=== PATIENT | male | born 2005 | race Hispanic/Latino ===

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

== ENCOUNTER 2024-07-18 14:41 | Emergency (ER) | payer SELFPAY ==
--- NOTE | 2024-07-18 16:20 | RAD REPORT ---
EXAM:Ankle Right 3 View CLINICAL HISTORY: Ankle pain FINDINGS: No fracture or dislocation seen. Soft tissue swelling
--- NOTE | 2024-07-18 16:26 | ER ---
Nurse's Notes [facility] Name: Lucien Hoffmann Age: 19 yrs Sex: Male : 2005 Arrival Date: 07/18/2024 Time: 14:41 Bed 12 Private MD: Diagnosis: Sprain of unspecified ligament of left ankle, initial encounter Presentation: 07/18 15:09 Chief complaint: Rolled ankle stepping out of vehicle, c/o right ankle pain 01/18. hb Coronavirus screen: At this time, the client does not indicate any symptoms associated with coronavirus-19. Ebola Screen: No symptoms or risks identified at this time. Initial Sepsis Screen: Does the patient meet any 2 criteria? No. Patient's initial sepsis screen is negative. Does the patient have a suspected source of infection? No. Patient's initial sepsis screen is negative. Risk Assessment: Do you want to hurt yourself or someone else? Patient reports no desire to harm self or others. Onset of symptoms was July 17, 2024. 15:09 Method Of Arrival: Ambulatory hb 15:09 Acuity: HAMMAD 4 hb Historical: - Allergies: 15:09 No Known Allergies; hb - Home Meds: 15:09 None [Active]; hb - PMHx: 15:09 None; hb - PSHx: 15:09 None; hb - Immunization history:: Adult Immunizations up to date. - Infectious Disease History:: Denies. - Social history:: Smoking status: Reported history of juuling and/or vaping. Screenin:33 [facility] ED Fall Risk Assessment (Adult) History of falling in the last 3 months, ap3 including since admission No falls in past 3 months (0 pts) Confusion or Disorientation No (0 pts) Intoxicated or Sedated No (0 pts) Impaired Gait No (0 pts) Mobility Assist Device Used No (0 pt) Altered Elimination No (0 pt) Score/Fall Risk Level 0 - 2 = Low Risk Oriented to surroundings, Maintained a safe environment, Educated pt \T\ family on fall prevention, incl call for assistance when getting out of bed, Assessed \T\ reinforced patient's understanding of fall precautions, Hourly rounding (assess needs \T\ fall precautionary measures) done, Used ambulatory aids as needed (educated on \T\ assisted with). Abuse screen: Denies threats or abuse. Nutritional screening: No deficits noted. Tuberculosis screening: No symptoms or risk factors identified. Assessment: 15:33 General: Appears in no apparent distress. Behavior is calm, cooperative, appropriate ap3 for age. Pain: Complains of pain in right ankle. Neuro: Level of Consciousness is awake, alert, obeys commands, Oriented to person, place, time, situation, Appropriate for age. Cardiovascular: Patient's skin is warm and dry. Respiratory: Airway is patent Respiratory effort is even, unlabored, Respiratory pattern is regular, symmetrical. Musculoskeletal: Reports pain in right ankle. Vital Signs: 15:10 BP 141 / 88; Pulse 86; Resp 16; Temp 97.8; Pulse Ox 100% on R/A; Weight 77.11 kg; hb Height 5 ft. 10 in. ; Pain 9/10; 15:10 Body Mass Index 24.39 (77.11 kg, 177.8 cm) hb 15:10 Pain Scale: Adult hb ED Course: 14:45 Patient arrived in ED. al6 15:01 Charles Arredondo PA is PHCP. cp 15:01 Kevin Hurt MD is Attending Physician. cp 15:09 Triage completed. hb 15:10 Arm band placed on. hb 15:33 Romy Hancock, MONSE is Primary Nurse. ap3 15:55 Ankle Right 3 View XRAY In Process Unspecified. EDMS 16:25 Ray Donnelly MD is Referral Physician. cp 16:48 No provider procedures requiring assistance completed. Patient did not have IV access ss during this emergency room visit. Administered Medications: 16:34 Drug: Ibuprofen PO 800 mg PO once Route: PO; ap3 16:49 Follow up: Response: No adverse reaction ss Outcome: 16:25 Discharge ordered by . cp 16:48 Discharged to home ambulatory, ss 16:48 Condition: good 16:48 Discharge instructions given to patient, Instructed on discharge instructions, follow up and referral plans. medication usage, Demonstrated understanding of instructions, follow-up care, medications, Prescriptions given X 1, 16:49 Patient left the ED. ss Signatures: Dispatcher [employer] EDMS Lyn Gu RN RN Charles Arredondo PA PA cp Tracey Soriano RN RN Romy Hancock RN RN ap3 Janelle Arteaga al6
--- NOTE | 2024-07-18 16:26 | EDPHYS ---
Physician Documentation [facility] Name: Lucien Hoffmann Age: 19 yrs Sex: Male : 2005 Arrival Date: 07/18/2024 Time: 14:41 Bed 12 Private MD: ED Physician Kevin Hurt HPI: 07/18 16:00 This 19 yrs old Male presents to ER via Ambulatory with complaints of Ankle cp Injury. 16:00 The patient presents with an injury, pain, that is acute. The complaints affect the cp right ankle. Onset: The symptoms/episode began/occurred yesterday. 16:00 Context: resulted from a mis-step by the patient, getting out of vehicle, The patient cp can fully bear weight on the affected extremity. Associated signs and symptoms: Pertinent negatives: calf tenderness, numbness. Modifying factors: the symptoms are aggravated by weight bearing, movement. Severity of symptoms: in the emergency department the symptoms are unchanged, despite home interventions. Historical: - Allergies: 15:09 No Known Allergies; hb - Home Meds: 15:09 None [Active]; hb - PMHx: 15:09 None; hb - PSHx: 15:09 None; hb - Immunization history:: Adult Immunizations up to date. - Infectious Disease History:: Denies. - Social history:: Smoking status: Reported history of juuling and/or vaping. ROS: 16:05 MS/extremity: Positive for pain, of the right ankle, Negative for decreased range of cp motion, deformity, paresthesias, 16:05 Constitutional: Negative for body aches, chills, fever, poor PO intake, cp 16:05 Neck: Negative for pain with movement, pain at rest, 16:05 Back: Negative for pain at rest, pain with movement, 16:05 Neuro: Negative for numbness, weakness, 16:05 All other systems are negative, Exam: 16:10 Constitutional: The patient appears in no acute distress, alert, awake, non-toxic, well cp developed, well nourished, 16:10 Head/Face: Normocephalic, atraumatic. cp 16:10 Neck: ROM/movement: is normal, is supple, without pain, no range of motions limitations, 16:10 Chest/axilla: Inspection: normal, 16:10 Cardiovascular: Rate: normal, 16:10 Respiratory: the patient does not display signs of respiratory distress, Respirations: normal, no use of accessory muscles, no retractions, 16:10 Back: pain, is absent, ROM is normal, 16:10 Musculoskeletal/extremity: Extremities: grossly normal except: noted in the right lateral malleolus: pain, swelling, tenderness, There is no evidence of decreased ROM, deformity, ROM: limited passive range of motion due to pain, in the right ankle, Perfusion: the extremity is normally perfused throughout, the right foot Sensation intact. Vital Signs: 15:10 BP 141 / 88; Pulse 86; Resp 16; Temp 97.8; Pulse Ox 100% on R/A; Weight 77.11 kg; hb Height 5 ft. 10 in. ; Pain 9/10; 15:10 Body Mass Index 24.39 (77.11 kg, 177.8 cm) hb 15:10 Pain Scale: Adult hb MDM: 16:00 Differential diagnosis: fracture, sprain, dislocation, Achilles tendon rupture. 16:25 Medical Screening Exam initiated 16:25 Data reviewed: vital signs, nurses notes, radiologic studies, plain films, and as a cp result, I will discharge patient. 16:25 I considered the following discharge prescriptions or medication management in the emergency department Medications were administered in the Emergency Department. See MAR. Independent interpretation of the following test(s) in the Emergency Department X-Ray: My interpretation is images of right ankle negative for fracture. Counseling: I had a detailed discussion with the patient and/or guardian regarding the historical points, exam findings, and any diagnostic results supporting the discharge/admit diagnosis, radiology results, to return to the emergency department if symptoms worsen or persist or if there are any questions or concerns that arise at home. Response to treatment: the patient's symptoms have mildly improved after treatment, and as a result, I will discharge patient. 07/18 15:10 Order name: Ankle Right 3 View XRAY; Complete Time: 16:22 hb Administered Medications: 16:34 Drug: Ibuprofen PO 800 mg PO once Route: PO; ap3 16:49 Follow up: Response: No adverse reaction ss Disposition: 07/19 13:53 Chart complete. cp 16:27 Co-signature as Attending Physician, Kevin Hurt MD I reviewed the patient's care rn provided by the Advanced Practice Provider and agree with the diagnosis and treatment plan. Disposition Summary: 07/18/24 16:25 Discharge Ordered Notes: Location: Home cp Problem: new cp Symptoms: have improved cp Condition: Stable cp Diagnosis - Sprain of unspecified ligament of left ankle, initial encounter cp Followup: cp - With: Ray Donnelly MD - When: 5 - 6 days - Reason: pain and swelling continues Discharge Instructions: - Discharge Summary Sheet cp - Ankle Sprain cp Forms: - Work release form ss - Medication Reconciliation Form cp - Antibiotic Education cp - Prescription Opioid Use cp - Patient Portal Instructions cp - Leadership Thank You Letter cp Prescriptions: - Ibuprofen 800 mg Oral Tablet - take 1 tablet ORAL route every 8 hours As needed take with food; 30 tablet; cp Refills: 0, Product Selection Permitted Signatures: Dispatcher [employer] EDKevin Musa MD MD rn Page, Corey, PA PA cp Baxter, Heather RN RN Romy Banks RN RN ap3 Lyn Gu RN ss
[2024-07-18] MEDS ORDERED: IBUPROFEN 400 MG TAB ONE (16:27)
[2024-07-18 17:35] VITALS: BP 141/88; TEMP 97.8; O2SAT 100
== END 2024-07-18 16:49 | disposition home or self-care (01) ==
LOC: ER 14:41
DX: S93.401A Sprain of unspecified ligament of right ankle, initial encounter (principal)
CPT/HCPCS: 99283

== ENCOUNTER 2024-07-31 12:30 | Emergency (ER) | payer SELFPAY ==
[2024-07-31] MEDS ORDERED: KETOROLAC 30 MG/ML INJ ONE (12:51)
[2024-07-31] MEDS ORDERED: HYDROCODONE/APAP 5/325 MG TAB ONE (12:52)
--- NOTE | 2024-07-31 14:40 | RAD REPORT ---
EXAMINATION: XR Foot Left 3 View CLINICAL INDICATION: Male, 19 years old. [facility] MAIN Pain;Swelling Bed Name: TECHNIQUE: 3 view radiographs of the left foot were obtained. COMPARISON: No prior exam. FINDINGS: Mildly displaced fracture at the base of the calcaneus with fracture gap along the posterol ateral cortex measuring up to 9 mm. No evidence of arthropathy or other focal bone lesion. Soft tissue swelling about the ankle. No significant degenerative changes. IMPRESSION: Mildly displaced fracture at the base of the calcaneus.
--- NOTE | 2024-07-31 14:40 | RAD REPORT ---
EXAMINATION: XR Ankle Left 3 View CLINICAL INDICATION: Male, 19 years old. [facility] MA[facility] Pain;Swelling Bed Name: 12 TECHNIQUE: 3 view radiographs of the left ankle were obtained. COMPARISON: No prior exam. FINDINGS: Mildly displaced fracture at the base of the calcaneus. Surrounding soft tissue swelling. IMPRESSION: Mildly displaced fracture at the base of the calcaneus.
--- NOTE | 2024-07-31 15:10 | ER ---
Nurse's Notes [facility] Name: Lucien Hoffmann Age: 19 yrs Sex: Male : 2005 Arrival Date: 07/31/2024 Time: 12:30 Bed 12 Private MD: Diagnosis: Fracture of calcaneus Presentation: 07/31 12:38 Chief complaint: Dropped couch on left foot this morning, c/o pain 02/17. Coronavirus hb screen: At this time, the client does not indicate any symptoms associated with coronavirus-19. Ebola Screen: No symptoms or risks identified at this time. Initial Sepsis Screen: Does the patient meet any 2 criteria? No. Patient's initial sepsis screen is negative. Does the patient have a suspected source of infection? No. Patient's initial sepsis screen is negative. Risk Assessment: Do you want to hurt yourself or someone else? Patient reports no desire to harm self or others. Onset of symptoms was July 31, 2024. 12:38 Method Of Arrival: Wheelchair hb 12:38 Acuity: HAMMAD 4 hb Historical: - Allergies: 12:39 No Known Allergies; hb - Home Meds: 12:39 None [Active]; hb - PMHx: 12:39 None; hb - PSHx: 12:39 None; hb - Immunization history:: Adult Immunizations up to date. - Infectious Disease History:: Denies. - Social history:: Smoking status: Patient denies any tobacco usage or history of. Screenin:49 [facility] ED Fall Risk Assessment (Adult) History of falling in the last 3 months, ss including since admission No falls in past 3 months (0 pts) Confusion or Disorientation No (0 pts) Intoxicated or Sedated No (0 pts) Impaired Gait Yes (1 pt) Mobility Assist Device Used Yes (1 pt) Altered Elimination No (0 pt) Score/Fall Risk Level 0 - 2 = Low Risk Oriented to surroundings, Maintained a safe environment, Educated pt \T\ family on fall prevention, incl call for assistance when getting out of bed. Abuse screen: Denies threats or abuse. Denies injuries from another. Nutritional screening: No deficits noted. Tuberculosis screening: Never had TB. Assessment: 14:50 General: Appears in no apparent distress. comfortable, Behavior is calm, cooperative, ss Denies feeling ill. Pain: Complains of pain in left foot and anterior aspect of left ankle and left medial ankle and left Achilles and left lateral ankle Pain currently is 9 out of 10 on a pain scale. Quality of pain is described as aching, tender, Pain began suddenly, Is continuous, Aggravated by increased activity, weight bearing. Neuro: Level of Consciousness is awake, alert, obeys commands, Oriented to person, place, time, situation, Electrical Line Worker are equal bilaterally Speech is normal. Respiratory: Airway is patent Respiratory effort is even, unlabored, Respiratory pattern is regular, symmetrical. GI: No deficits noted. Derm: Skin is pink, warm \T\ dry. Bruising that is dark purple, on anterior aspect of left ankle. Musculoskeletal: Circulation, motion, and sensation intact. Range of motion: intact in all extremities, Swelling absent. Vital Signs: 12:38 BP 143 / 92; Pulse 100; Resp 16; Temp 98.2; Pulse Ox 100% ; Weight 83.91 kg; Height 5 hb ft. 10 in. ; Pain 10/10; 12:38 Body Mass Index 26.54 (83.91 kg, 177.8 cm) hb 12:38 Pain Scale: Adult hb ED Course: 12:34 Patient arrived in ED. im 12:34 Dante Chavarria FNP-C is PHCP. dr5 12:34 John Avalos MD is Attending Physician. dr5 12:39 Triage completed. hb 12:40 Arm band placed on. hb 12:56 Jacek Carter, RN is Primary Nurse. ll1 13:22 Foot Left 3 View XRAY In Process Unspecified. EDMS 13:22 Ankle Left 3 View XRAY In Process Unspecified. EDMS 14:49 Patient has correct armband on for positive identification. ss 15:09 Goyo Nelson MD is Referral Physician. dr5 15:17 Ortho shoe applied to left foot. ty Administered Medications: 12:56 Drug: HYDROcodone-acetaminophen PO 5 mg-325 mg 2 tabs PO once {Note: pain 8/10 RASS 0.} ll1 Route: PO; 12:56 Drug: Ketorolac IM 30 mg IM once Route: IM; Site: right vastus lateralis; ll1 Medication: 14:50 VIS not applicable for this client. ss Outcome: 15:10 Discharge ordered by . dr5 15:31 Patient left the ED. hb Signatures: Dispatcher [employer] Lyn Figueroa, MONSE RN ss Tracey Soriano RN RN Jacek Kee RN RN ll1 Dorys Hernandez Tylor ty Rhodes, Dustin, PIPE CONNECTOR-C PIPE CONNECTOR-Cdr5
--- NOTE | 2024-07-31 15:11 | EDPHYS ---
Physician Documentation [facility] Name: Lucien Hoffmann Age: 19 yrs Sex: Male : 2005 Arrival Date: 07/31/2024 Time: 12:30 Bed 12 Private MD: ED Physician John Avalos HPI: 07/31 14:33 This 19 yrs old Male presents to ER via Wheelchair with complaints of Crush dr5 Injury To Foot - Left. 14:33 The patient presents with swelling, tenderness. The complaints affect the left foot. dr5 Patient is a 19-year-old male with no past medical history coming in with left foot pain/left ankle pain after couch fell on foot this morning around 9 AM. Patient denies numbness / tingling. Pt able to bear mild weight on foot.. Historical: - Allergies: 12:39 No Known Allergies; hb - Home Meds: 12:39 None [Active]; hb - PMHx: 12:39 None; hb - PSHx: 12:39 None; hb - Immunization history:: Adult Immunizations up to date. - Infectious Disease History:: Denies. - Social history:: Smoking status: Patient denies any tobacco usage or history of. ROS: 14:33 MS/extremity: Positive for swelling, tenderness, of the left foot, left lateral ankle, dr5 left Achilles, left medial ankle and anterior aspect of left ankle, 14:33 Constitutional: as per hpi Exam: 14:33 Constitutional: This is a well developed, well nourished patient who is awake, alert, dr5 and in no acute distress. Head/Face: Normocephalic, atraumatic. Eyes: Pupils equal round and reactive to light, extra-ocular motions intact. Lids and lashes normal. Conjunctiva and sclera are non-icteric and not injected. Cornea within normal limits. Periorbital areas with no swelling, redness, or edema. Neck: Trachea midline, no thyromegaly or masses palpated, and no cervical lymphadenopathy. Supple, full range of motion without nuchal rigidity, or vertebral point tenderness. No Meningismus. Chest/axilla: Normal chest wall appearance and motion. Nontender with no deformity. No lesions are appreciated. Cardiovascular: Regular rate and rhythm with a normal S1 and S2. Normal PMI, no JVD. No pulse deficits. Respiratory: Lungs have equal breath sounds bilaterally, clear to auscultation. No rales, rhonchi or wheezes noted. No increased work of breathing, no retractions or nasal flaring. Back: No spinal tenderness. No costovertebral tenderness. Full range of motion. Skin: Warm, dry with normal turgor. Normal color with no rashes, no lesions, and no evidence of cellulitis. Neuro: Awake and alert, GCS 15, oriented to person, place, time, and situation. Cranial nerves II-XII grossly intact. Motor strength 5/5 in all extremities. Sensory grossly intact. Cerebellar exam normal. Normal gait. 14:33 Musculoskeletal/extremity: Extremities: noted in the left foot and anterior aspect of left ankle and left medial ankle: swelling, tenderness, ROM: no acute changes, Circulation is intact in all extremities. Sensation intact. Vital Signs: 12:38 BP 143 / 92; Pulse 100; Resp 16; Temp 98.2; Pulse Ox 100% ; Weight 83.91 kg; Height 5 hb ft. 10 in. ; Pain 10/10; 12:38 Body Mass Index 26.54 (83.91 kg, 177.8 cm) hb 12:38 Pain Scale: Adult hb Procedures: 16:45 Splinting: Splint applied to left foot using Tall Walking Boot. applied by tech. dr5 Examined by me, post splint application: neurovascular intact, 2+ distal pulses palpable, brisk capillary refill noted, Patient tolerated well. Crutch training provided to patient and/or family. Return demonstration given. MDM: 12:34 Medical Screening Exam initiated dr5 16:17 Differential diagnosis: fracture, sprain, cellulitis. Data reviewed: vital signs, dr5 nurses notes, radiologic studies, plain films. I considered the following discharge prescriptions or medication management in the emergency department Medications were administered in the Emergency Department. See MAR. Care significantly affected by the following Social Determinants of Health: Poor access to healthcare and/or lack of insurance, Poor access to transportation, Problems related to employment. Counseling: I had a detailed discussion with the patient and/or guardian regarding the historical points, exam findings, and any diagnostic results supporting the discharge/admit diagnosis, the presence of at least one elevated blood pressure reading (>120/80) during this emergency department visit, the need for outpatient follow up, for definitive care, a family practitioner, a orthopedic surgeon, to return to the emergency department if symptoms worsen or persist or if there are any questions or concerns that arise at home. 07/31 12:48 Order name: Foot Left 3 View XRAY; Complete Time: 14:55 hb 07/31 12:49 Order name: Ankle Left 3 View XRAY; Complete Time: 14:55 dr5 07/31 14:55 Order name: Walking boot; Complete Time: 15:29 dr5 Administered Medications: 12:56 Drug: HYDROcodone-acetaminophen PO 5 mg-325 mg 2 tabs PO once {Note: pain 8/10 RASS 0.} ll1 Route: PO; 12:56 Drug: Ketorolac IM 30 mg IM once Route: IM; Site: right vastus lateralis; ll1 Disposition Summary: 07/31/24 15:10 Discharge Ordered Notes: Location: Home dr5 Condition: Stable dr5 Diagnosis - Fracture of calcaneus dr5 Followup: dr5 - With: Emergency Department - When: As needed - Reason: Worsening of condition Followup: dr5 - With: Private Physician - When: 1 week - Reason: Recheck today's complaints, Continuance of care, Re-evaluation by your physician Followup: dr5 - With: Goyo Nelson MD - When: 1 week - Reason: Recheck today's complaints, Continuance of care, Re-evaluation by your physician Discharge Instructions: - Discharge Summary Sheet hb - Walking Boot, Adult dr5 - Foot Pain dr5 Forms: - Work release form hb - Medication Reconciliation Form dr5 - Patient Portal Instructions dr5 - Leadership Thank You Letter dr5 Prescriptions: - Tramadol 50 mg Oral Tablet - take 1 tablet ORAL route every 8 hours as needed; 12 tablet; Refills: 0, dr5 Product Selection Permitted Signatures: Dispatcher [employer] Tracey Yeager RN RN Jacek Carter RN RN ll1 Dante Chavarria, VIDEO EFFECTS EDITOR-C VIDEO EFFECTS EDITOR-Cdr5
[2024-07-31 15:46] VITALS: BP 143/92; TEMP 98.2; O2SAT 100
== END 2024-07-31 15:31 | disposition home or self-care (01) ==
LOC: ER 12:30
DX: S92.002A Unspecified fracture of left calcaneus, initial encounter for closed fracture (principal)
CPT/HCPCS: 96372; 99284